=== PATIENT | male | born 1985 | race American Indian/Alaskan Native ===

== ENCOUNTER 2021-08-01 11:41 | Emergency (ER) | payer SELFPAY ==
[2021-08-01 12:08] VITALS: BP 123/96
--- NOTE | 2021-08-01 12:46 | Emergency Department Report ---
ED General Adult HPI - General Chief complaint: Extremity Injury, Upper Stated complaint: FRACTURE RT PINKY FINGER Time Seen by Provider: 08/01/21 12:14 Source: patient Mode of arrival: Ambulatory Limitations: No Limitations - History of Present Illness Initial comments: 36-year-old -[place] male patient presents with complaints of right little finger pain. Patient states he injured the finger about 3 weeks ago initially and then reinjured it at work 2 days ago. Pain worsens with movement and to touch per patient. He denies any loss of sensation or inability to move his finger or hand. NKDA per patient - Related Data Previous Rx's Medication Instructions Recorded Last Taken Type Naproxen [EC-Naprosyn] 500 mg PO BID PRN #20 tab 08/01/21 Unknown Rx Allergies Allergy/AdvReac Type Severity Reaction Status Date / Time No Known Allergies Allergy Unverified 08/01/21 12:05 ED Review of Systems ROS: Stated complaint: FRACTURE RT PINKY FINGER Other details as noted in HPI Musculoskeletal: arthralgia. denies: joint swelling Skin: denies: change in color Neurological: denies: numbness, paresthesias ED Past Medical Hx - Medications Home Medications: Home Medications Medication Instructions Recorded Confirmed Last Taken Type Naproxen [EC-Naprosyn] 500 mg PO BID PRN #20 tab 08/01/21 Unknown Rx ED Physical Exam - General Limitations: No Limitations General appearance: alert, in no apparent distress - Head Head exam: Present: atraumatic, normocephalic - Eye Eye exam: Present: normal appearance - Respiratory Respiratory exam: Absent: respiratory distress - Cardiovascular Cardiovascular Exam: Present: regular rate - Expanded Upper Extremity Exam Right Hand Wrist exam: Present: tenderness (Fifth MCP tenderness to palpation noted without obvious deformity or swelling; patient has full range of motion of the fifth digit). Absent: swelling, laceration - Neurological Exam Neurological exam: Present: alert, oriented X3 - Psychiatric Psychiatric exam: Present: normal affect, normal mood - Skin Skin exam: Present: warm, dry, intact, normal color. Absent: rash ED Course Vital Signs 08/01/21 12:07 Temperature 98.0 F Pulse Rate 70 Respiratory 20 Rate Blood Pressure 123/96 O2 Sat by Pulse 100 Oximetry ED Medical Decision Making - Radiology Data Radiology results: report reviewed Right little finger series-3 views INDICATION: proximal 5th MCP pain. COMPARISON: None available. IMPRESSION: No acute osseous abnormality. Normal alignment. No significant DJD. Soft tissues are unremarkable. - Medical Decision Making 36-year-old -[place] male patient presents with complaints of right little finger pain. Patient states he injured the finger about 3 weeks ago initially and then reinjured it at work 2 days ago. Pain worsens with movement and to touch per patient. He denies any loss of sensation or inability to move his finger or hand. NKDA per patient No acute abnormalities noted on x-ray. Discussed treatment for finger sprain. Patient placed in metal finger splint. Recommend follow-up with orthopedics as needed. He is otherwise well-appearing, his vitals are within normal limits, he is stable for discharge home. Strict return precautions were discussed in detail patient verbalizes understanding Critical care attestation.: If time is entered above; I have spent that time in minutes in the direct care of this critically ill patient, excluding procedure time. ED Disposition Clinical Impression: Injury of right little finger Disposition: 01 HOME / SELF CARE / HOMELESS Is pt being admited?: No Condition: Stable Instructions: Finger Sprain, Adult, [id number] Prescriptions: Naproxen [EC-Naprosyn] 500 mg PO BID PRN #20 tab PRN Reason: pain Referrals: [facility] [Provider Group] - as needed Forms: Work/School Release Form(ED)
--- NOTE | 2021-08-01 13:18 | XRay Report ---
Right little finger series-3 views INDICATION: proximal 5th MCP pain. COMPARISON: None available. IMPRESSION: No acute osseous abnormality. Normal alignment. No significant DJD. Soft tissues are u nremarkable. Signer Name: Sav Arguello MD Signed: 08/01/2021 1:12 PM Workstation Name: [id number]
== END 2021-08-01 13:40 | disposition home or self-care (01) ==
LOC: ED 11:41
DX: S69.91XA Unspecified injury of right wrist, hand and finger(s), initial encounter (principal); X58.XXXA Exposure to other specified factors, initial encounter; Y93.89 Activity, other specified; Y92.89 Other specified places as the place of occurrence of the external cause; Y99.8 Other external cause status
CPT/HCPCS: 99283

== ENCOUNTER 2021-10-25 15:05 | Emergency (ER) | payer SELFPAY ==
[2021-10-25 15:22] VITALS: BP 119/79
--- NOTE | 2021-10-25 15:50 | XRay Report ---
CHEST 2 VIEWS INDICATION: Chest Pain. COMPARISON: None FINDINGS: SUPPORT DEVICES: None. HEART: Within normal limits. LUNGS/PLEURA: No acute air space or interstitial disease. No pneumothorax. ADDITIONAL FINDINGS: None. IMPRESSION: 1. No acute findings. Signer Name: Sav Arguello MD Signed: 10/25/2021 3:45 PM Workstation Name: [id number]
[2021-10-25 16:08] LABS: Alanine Aminotransferase 14 units/L (7-56); Albumin 4.7 g/dL (3.9-5); BUN/Creatinine Ratio 15; Blood Urea Nitrogen 17 mg/dL (9-20); Calcium 9.3 mg/dL (8.4-10.2); Hemolysis Index 7
[2021-10-25 16:11] LABS: Hematocrit 42.8 % (35.5-45.6); Hemoglobin 14.2 gm/dl (11.8-15.2); Mean Corpuscular HGB Conc 33 % (32-34); Mean Corpuscular Volume 91 fl (84-94); Platelet Count 213 K/mm3 (140-440); Red Blood Count 4.73 M/mm3 (3.65-5.03); Red Cell Distribution Width 13.8 % (13.2-15.2)
[2021-10-25 16:59] LABS: Platelet Estimate Consistent w Auto; RBC Morphology Normal; Total Cells Counted 100
[2021-10-25] MEDS ORDERED: predniSONE 20 MG TAB PO ONE (18:53)
[2021-10-25] MEDS ORDERED: KETOROLAC 10 MG TAB PO ONE (18:53)
--- NOTE | 2021-10-25 19:03 | Emergency Department Report ---
ED Chest Pain HPI - General Chief Complaint: Chest Pain Stated Complaint: CHEST PAIN Time Seen by Provider: 10/25/21 18:47 Source: patient Mode of arrival: Ambulatory Limitations: No Limitations - History of Present Illness Initial Comments: 36-year-old black male with no past medical history and no known family history of CAD presents to the emergency department for evaluation of midsternal chest pain. He states that chest pain started last night, is nonradiating, and is worse with deep inspiration and movement of his arms. He states that pain was associated with shortness of breath, nausea, and dizziness. He states that pain at its worst 7 out of 10 and he has not taken any medication for his symptoms. He denies diaphoresis. MD Complaint: chest pain -: Sudden, Last night Onset: during rest Pain Location: substernal Pain Radiation: none Severity: moderate Severity scale (0 -10): 7 Quality: sharp Consistency: intermittent Worsens With: inspiration, palpation, movement re: nausea, dyspnea. denies: vomting, diaphoresis Other Symptoms: denies: cough, fever, syncope, rash, acid taste in mouth, leg swelling, palpitations, burping Treatments Prior to Arrival: none Aspirin use within the Past 7 Days: (0) No - Related Data Previous Rx's Medication Instructions Recorded Last Taken Type Naproxen [EC-Naprosyn] 500 mg PO BID PRN #20 tab 08/01/21 Unknown Rx Naproxen [Naprosyn] 500 mg PO BID #14 tab 10/25/21 Unknown Rx Allergies Allergy/AdvReac Type Severity Reaction Status Date / Time No Known Allergies Allergy Verified 10/25/21 15:21 Heart Score - HEART Score History: Slightly suspicious EKG: Non-specific Age: < 45 Risk factors: 1-2 risk factors Troponin: < normal limit HEART Score: 2 - EKG Read Time Time EKG Completed: 15:15 EKG Read Time: 15:20 - Critical Actions Critical Actions: 0-3 pts:0.9-1.7%risk of adverse cardiac event.Candidate for discharge ED Review of Systems ROS: Stated complaint: CHEST PAIN Other details as noted in HPI Comment: All other systems reviewed and negative Constitutional: denies: chills, fever Eyes: denies: vision change ENT: denies: congestion Respiratory: denies: cough, orthopnea, shortness of breath, SOB with exertion, SOB at rest Cardiovascular: chest pain. denies: palpitations, dyspnea on exertion, orthopnea, edema, syncope, paroxysmal nocturnal dyspnea Gastrointestinal: nausea. denies: abdominal pain, vomiting, diarrhea, hematemesis, melena, hematochezia Genitourinary: denies: urgency, dysuria, frequency, hematuria, discharge Musculoskeletal: denies: back pain Skin: denies: rash, lesions Neurological: denies: headache, weakness, numbness, paresthesias Psychiatric: denies: anxiety, depression Hematological/Lymphatic: denies: easy bleeding, easy bruising, swollen glands ED Past Medical Hx - Medications Home Medications: Home Medications Medication Instructions Recorded Confirmed Last Taken Type Naproxen [EC-Naprosyn] 500 mg PO BID PRN #20 tab 08/01/21 Unknown Rx Naproxen [Naprosyn] 500 mg PO BID #14 tab 10/25/21 Unknown Rx ED Physical Exam - General Limitations: No Limitations General appearance: alert, in no apparent distress - Head Head exam: Present: atraumatic, normocephalic - Eye Eye exam: Present: normal appearance. Absent: conjunctival injection - Neck Neck exam: Present: normal inspection, full ROM. Absent: tenderness, lymphadenopathy - Respiratory Respiratory exam: Present: normal lung sounds bilaterally, chest wall tendern ess. Absent: respiratory distress, wheezes, rales, rhonchi, stridor - Cardiovascular Cardiovascular Exam: Present: regular rate, normal heart sounds - GI/Abdominal GI/Abdominal exam: Present: soft, normal bowel sounds. Absent: distended, tenderness, guarding, rebound, rigid - Extremities Exam Extremities exam: Present: normal inspection, normal capillary refill. Absent: tenderness, pedal edema, joint swelling - Back Exam Back exam: Present: normal inspection. Absent: tenderness, CVA tenderness (R), CVA tenderness (L), vertebral tenderness - Neurological Exam Neurological exam: Present: alert, oriented X3, normal gait - Psychiatric Psychiatric exam: Present: normal affect, normal mood - Skin Skin exam: Present: warm, dry, intact, normal color ED Course Vital Signs 10/25/21 15:14 Temperature 97.1 F L Pulse Rate 78 Respiratory 18 Rate Blood Pressure 119/79 [Right] O2 Sat by Pulse 99 Oximetry OLGA score - Olga Score Age > 65: (0) No Aspirin use within the Past 7 Days: (0) No 3 or more CAD Risk Factors: (0) No 2 or more Angina events in past 24 hrs: (1) Yes Known CAD with more than 50% Stenosis: (0) No Elevated Cardiac Markers: (0) No ST Deviation Greater than 0.5mm: (0) No OLGA Score: 1 ED Medical Decision Making - Lab Data Result diagrams: 10/25/21 15:27 10/25/21 15:27 - EKG Data EKG shows normal: sinus rhythm - EKG Data Interpretation: no acute changes - Radiology Data Radiology results: report reviewed, image reviewed Chest x-ray: FINDINGS: SUPPORT DEVICES: None. HEART: Within normal limits. LUNGS/PLEURA: No acute air space or interstitial disease. No pneumothorax. ADDITIONAL FINDINGS: None. IMPRESSION: 1. No acute findings. - Medical Decision Making 36-year-old black male with no past medical history and no known family history of CAD presents to the emergency department for evaluation of midsternal chest p ain. He states that chest pain started last night, is nonradiating, and is worse with deep inspiration and movement of his arms. He states that pain was associated with shortness of breath, nausea, and dizziness. He states that pain at its worst 7 out of 10 and he has not taken any medication for his symptoms. He denies diaphoresis. No acute ischemic changes noted on EKG, troponin within normal limits, chest x- ray without any acute abnormalities noted, heart score of 2, and pain worse with palpation. Low suspicion for ACS, so patient will be treated with one-time dose of Toradol and prednisone and advised to follow-up with his primary care provider or cardiology for further evaluation and management. He is advised to return to the emergency department for any concerns. He verbalizes understanding of and agreement with plan of care. Critical care attestation.: If time is entered above; I have spent that time in minutes in the direct care of this critically ill patient, excluding procedure time. ED Disposition Clinical Impression: Chest wall pain Disposition: HOME / SELF CARE / HOMELESS Is pt being admited?: No Does the pt Need Aspirin: No Condition: Stable Instructions: Chest Wall Pain, [id number], Nonspecific Chest Pain, Adult, [id number] Additional Instructions: Take medications as prescribed. Follow up with primary care provider or cardio logist for further evaluation and management. Return to ed as needed. Prescriptions: Naproxen [Naprosyn] 500 mg PO BID #14 tab Referrals: FLOWER SMALLS MD [Staff Physician] - 3-5 Days TIM RESTREPO MD [Staff Physician] - 3-5 Days Forms: Work/School Release Form(ED) Time of Disposition: 19:02
--- NOTE | 2021-10-26 10:13 | Electrocardiograph Report ---
[facility] Test Date: 2021-10-25 Test Time: 15:15:34 Pat Name: KAVEH REYNOLDS Department: Room: Gender: M Courtesy Van Driver: KODY : 1985 Requested By: TIMI FIERRO Order Number: [id number] Reading MD: Nikko Graves Measurements Intervals [place] Rate: 65 P: 29 AL: 190 QRS: 73 QRSD: 93 T: 30 QT: 384 QTc: 401 Interpretive Statements Sinus rhythm st elevation consider early replorization No previous ECG available for comparison Electronically Signed On 10-26-2021 10:12:47 EDT by Nikko Graves
== END 2021-10-25 19:02 | disposition home or self-care (01) ==
LOC: ED 15:05
DX: R07.89 Other chest pain (principal)
CPT/HCPCS: 36415; 71046; 80053; 84484; 85007; 85025; 93005; 99284